=== PATIENT | male | born 1995 | race Caucasian/White ===

== ENCOUNTER 2019-02-07 19:01 | Emergency (ER) | payer OTHER ==
[~2019-02-07] VITALS: Ht 177.8 cm; Wt 65.8 kg
[~2019-02-07 19:01] MED LIST: AMOXICILLIN 50500 M1 PO; BACTRIM DS TAB1 EACH PO; MOBIC15 MG PO; NOHOMEMEDICATIONS; TRAMADOL 50 MG50 MG PO
[2019-02-07 20:29] LABS: ABSOLUTE EOSINOPHILS 0.1 thou/uL (0.0-0.7); ABSOLUTE LYMPHOCYTES 1.6 thou/uL (0.8-5.3); ABSOLUTE MONOCYTES 1.2 thou/uL (0.0-1.2); ABSOLUTE NEUTROPHILS 3.8 thou/uL (1.6-8.1); BASOPHILS 0.3 %; EOSINOPHILS 1.7 %; HEMATOCRIT 42.5 % (42.0-52.0); HEMOGLOBIN 14.7 gm/dL (14.0-18.0); LYMPHOCYTES 23.8 %; MCH 31.5 pg (26.0-34.0); MCHC 34.6 g/dL (28.0-37.0); MCV 91.1 fL (80.0-100.0); MONOCYTES 18.3 %; NUCLEATED RBCS 0 /100WBC; PLATELET COUNT* 278 thou/uL (150-400); POLYS 55.9 %; RBC 4.66 mil/uL (4.50-6.00); RDW-CV 12.2 % (10.5-14.5); WBC 6.8 thou/uL (4.0-11.0)
[2019-02-07 20:36] LABS: CALCIUM 9.1 mg/dL (8.5-10.1); CREATININE 1.1 mg/dL (0.6-1.3); POTASSIUM 4.1 mmol/L (3.5-5.1)
[2019-02-07 20:40] LABS: ALBUMIN 3.8 g/dL (3.4-5.0); MAGNESIUM 1.5 mg/dL (1.8-2.4); TOTAL BILIRUBIN 0.3 mg/dL (<0.1-1.0); TOTAL PROTEIN 7.5 g/dL (6.4-8.2)
[2019-02-07] MEDS ORDERED: CIPROFLOXACIN500 M1 PO (21:02)
[2019-02-07] MEDS ORDERED: FLAGYL500 M1 PO (21:02)
[2019-02-07 21:38] VITALS: BP 104/61
== END 2019-02-07 21:40 | disposition home or self-care (01) ==
LOC: M.ERS 19:01
PROVIDERS: Emergency Medicine
DX: R19.7 Diarrhea, unspecified (principal); R10.32 Left lower quadrant pain

== ENCOUNTER 2019-11-03 10:42 | Emergency (ER) | payer OTHER ==
[~2019-11-03] VITALS: Ht 175.3 cm; Wt 77.1 kg
[~2019-11-03 10:42] MED LIST changes: +CIPROFLOXACIN500 M1 PO; +FLAGYL500 M1 PO
[2019-11-03 11:06] LABS: INFLUENZA A ANTIGEN Positive (Negative); INFLUENZA B ANTIGEN Negative (Negative)
[2019-11-03] MEDS ORDERED: TAMIFLU75 MG PO (11:59)
[2019-11-03] MEDS ORDERED: TYLENOL WITH CO1 TA1 PO (11:59)
[2019-11-03] MEDS ORDERED: IBUPROFEN 600600 M1 PO (11:59)
[2019-11-03 12:15] VITALS: BP 124/72
== END 2019-11-03 12:18 | disposition home or self-care (01) ==
LOC: M.ERS 10:42
PROVIDERS: Family Medicine
DX: J10.1 Influenza due to other identified influenza virus with other respiratory manifestations (principal); M54.5 Low back pain

== ENCOUNTER 2021-04-12 13:37 | Emergency (ER) | payer OTHER ==
[~2021-04-12] VITALS: Ht 180.3 cm; Wt 69.8 kg
[~2021-04-12 13:37] MED LIST changes: +IBUPROFEN 600600 M1 PO; +TAMIFLU75 MG PO; +TYLENOL WITH CO1 TA1 PO
[2021-04-12] MEDS ORDERED: TRIAMCINOLONE A80 G2 TOP (14:54)
[2021-04-12 15:38] VITALS: BP 118/64
== END 2021-04-12 15:40 | disposition home or self-care (01) ==
LOC: M.ERS 13:37
DX: L25.5 Unspecified contact dermatitis due to plants, except food (principal)